=== PATIENT | male | born 1975 ===

== ENCOUNTER 2016-11-10 21:23 | Emergency (ER) | payer SELFPAY ==
[2016-11-10 21:34] VITALS: BP 148/93; RESP 16; TEMP 98.1; O2SAT 100
--- NOTE | 2016-11-10 22:33 | ED PDOC ---
HPI: Abdomen Time Seen by Provider: 11/10/16 21:37 Chief Complaint (Nursing): Abdominal Pain Chief Complaint (Provider): Epigastric pain History Per: Patient History/Exam Limitations: no limitations Onset/Duration Of Symptoms: Mins Outside of [place] travel?: No Current Symptoms Are (Timing): Still Present Context: Food Associated Symptoms: Vomiting Additional History Per: Patient Additional Complaint(s): The pt is a 41yo male, no known pmhx, presents to the ED for evaluation of acute onset epigastric abdominal pain with associated vomiting which occurred immediately after eating urdu fries. Pt reports that immediately after eating the food, he saw there were people cleaning around the area and he is concerned he might have ingested toxins. Pt is unsure the name of the cleaning fluids and is also unsure if other employees ate the fries as well. He reports multiple episodes of non-bloody, non-bilious vomiting, and mild chest discomfort. He denies any other medical complaints. Pt does not follow up with a PCP. Past Medical History Reviewed: Historical Data, Nursing Documentation, Vital Signs Vital Signs: Last Vital Signs Temp 98.1 F 11/10/16 21:31 Pulse 98 H 11/10/16 21:31 Resp 16 11/10/16 21:31 BP 148/93 H 11/10/16 21:31 Pulse Ox 100 11/10/16 21:31 - Medical History PMH: No Chronic Diseases - Surgical History Surgical History: No Surg Hx - Family History Family History: States: No Known Family Hx - Social History Current smoker - smoking cessation education provided: No Alcohol: None Drugs: Denies - Allergies Allergies/Adverse Reactions: Allergies Allergy/AdvReac Type Severity Reaction Status Date / Time No Known Allergies Allergy Verified 11/10/16 21:31 Review of Systems ROS Statement: Except As Marked, All Systems Reviewed And Found Negative Cardiovascular: Positive for: Chest Pain Gastrointestinal: Positive for: Vomiting, Abdominal Pain Physical Exam - Reviewed Nursing Documentation Reviewed: Yes Vital Signs Reviewed: Yes - ECG ECG: Positive for: Interpreted By Me, Viewed By Me ECG Rhythm: Positive for: Normal QRS, Normal ST Segment, Sinus Rhythm. Negative for: ST/T Changes Rate: 82 O2 Sat by Pulse Oximetry: 100 (RA) Pulse Ox Interpretation: Normal Medical Decision Making Medical Decision Making: Time: Impression: Acute gastritis, r/o dehydration Plan: -- EKG -- Labs -- Pepcid 20 mg IV -- Zofran 8mg IV --Reassess Scribe Attestation: Documented by Amita Varela acting as a scribe for Mervat Arceo MD Provider Scribe Attestation: All medical record entries made by the Scribe were at my direction and personally dictated by me. I have reviewed the chart and agree that the record accurately reflects my personal performance of the history, physical exam, medical decision making, and the department course for this patient. I have also personally directed, reviewed, and agree with the discharge instructions and disposition. Disposition - Disposition Forms: [employer] (Romanian)
[2016-11-10 22:38] VITALS: PULSE 82
[2016-11-10] MEDS ORDERED: Alum-Mag Hydrox-Simethicone Susp (30 mL) PO STA (23:23)
[2016-11-10] MEDS ORDERED: Alum-Mag Hydrox-Simethicone Susp (30 mL) ONE (23:31)
[2016-11-10 23:53] LABS: BASO % 0.4 % (0.0-2.0); EOS # 0.1 K/uL (0.0-0.7); EOS % 0.5 % (0.0-4.0); HEMATOCRIT 41.3 % (35.0-51.0); LYMPH # 1.5 K/uL (1.0-4.3); LYMPH % 13.1 % (20.0-40.0); MEAN CELL VOLUME 87.1 fl (80.0-94.0); MEAN CORPUSCULAR HEMOGLOBIN 29.1 pg (27.0-31.0); MEAN CORPUSCULAR HGB CONC 33.4 g/dL (33.0-37.0); MEAN PLATELET VOLUME 8.6 fl (7.2-11.7); MONO # 0.4 K/uL (0.0-0.8); MONO % 3.4 % (0.0-10.0); NEUT # 9.2 K/uL (1.8-7.0); NEUT % 82.6 % (50.0-75.0); NRBC % 0.1 % (0.0-0.0); RED CELL DISTRIBUTION WIDTH 12.7 % (11.5-14.5); WHITE BLOOD COUNT 11.1 K/uL (4.8-10.8)
[2016-11-11 00:08] LABS: ALB/GLOB RATIO 1.3 (1.0-2.1); ALCOHOL SERUM < 10 mg/dl (0-10); ALKALINE PHOSPHATASE 89 U/L (38-126); ALT/SGPT 41 U/L (21-72); AST/SGOT 28 U/L (17-59); BILIRUBIN,TOTAL 0.5 mg/dl (0.2-1.3); BLOOD UREA NITROGEN 16 mg/dl (9-20); CALCIUM 9.6 mg/dL (8.4-10.2); CARBON DIOXIDE 26 mmol/L (22-30); CHLORIDE 103 mmol/L (98-107); GFR AFRICAN-AMERICAN > 60; GLUCOSE,RANDOM 111 mg/dL (75-110); LIPASE 115 U/L (23-300); POTASSIUM 4.3 MMOL/L (3.6-5.0); SODIUM 139 mmol/l (132-148); TOTAL PROTEIN 7.6 G/DL (6.3-8.2)
--- NOTE | 2016-11-11 00:10 | ED PDOC ---
- Laboratory Results Result Diagrams: 11/10/16 23:49 11/10/16 23:49 - ECG O2 Sat by Pulse Oximetry: 100 (RA) Medical Decision Making Medical Decision Makin Patient signed out to me from Dr. Arceo pending re-evaluation. 0130 Upon re-evaluation, patient was sleeping comfortably. Upon awakening, patient confirms that he is feeling better and is tolerating PO. Patient is medically stable for discharge home. Scribe Attestation: Documented by Aida Tejeda acting as a scribe for Jena Hannah MD. Scribe Attestation: All medical record entries made by the Scribe were at my direction and personally dictated by me. I have reviewed the chart and agree that the record accurately reflects my personal performance of the history, physical exam, medical decision making, and the department course for this patient. I have also personally directed, reviewed, and agree with the discharge instructions and disposition. Disposition Counseled Patient/Family Regarding: Studies Performed, Diagnosis, Need For Followup - Clinical Impression Clinical Impression: Gastritis - POA Present On Arrival: None - Disposition [facility]errals: [facility] [Outside] [facility] [Outside] Disposition: Routine/Home Disposition Time: 01:00 Condition: IMPROVED Additional Instructions: follow up with your primary doctor in 1-2 days return to the ED With any worsening or concerning symptoms Prescriptions: Famotidine [Pepcid] 20 mg PO BID PRN #10 tab PRN Reason: Heartburn Instructions: Gastritis (ED) Forms: [employer] (Indonesian)
--- NOTE | 2016-11-11 07:54 | RAD ---
HISTORY: chest pain COMPARISON: No prior. TECHNIQUE: Chest PA and lateral FINDINGS: LUNGS: No active pulmonary disease. PLEURA: No significant pleural effusion identified. No pneumothorax apparent. CARDIOVASCULAR: Normal. OSSEOUS STRUCTURES: No significant abnormalities. VISUALIZED UPPER ABDOMEN: Normal. OTHER FINDINGS: None. IMPRESSION: No acute cardiopulmonary disease.
== END 2016-11-11 01:27 | disposition home or self-care (01) ==
LOC: H.ER 21:23
DX: K29.70 Gastritis, unspecified, without bleeding (principal)
CPT/HCPCS: 71020; 80053; 83690; 85025; 96374; 99282; G0480; J2405